=== PATIENT | female | born 1965 | race Caucasian/White ===

== ENCOUNTER 2020-06-11 21:23 | Emergency (ER) | payer MEDICAID ==
[~2020-06-11] VITALS: Ht 162.6 cm; Wt 79.0 kg
[2020-06-11] MEDS ORDERED: HYDROCODONE/ACETAMINOPHEN 5/325MG TABLET PO ONE (23:00)
[2020-06-11] MEDS ORDERED: METHOCARBAMOL 500MG TABLET PO ONE (23:00)
[2020-06-12] MEDS ORDERED: METH-653 MT (00:42)
[2020-06-12] MEDS ORDERED: HYDR-4346 MT (00:42)
[2020-06-12 01:06] VITALS: BP 157/80
[2020-06-12] MEDS ORDERED: HYDR-4001 MT (16:54)
== END 2020-06-12 01:08 | disposition home or self-care (01) ==
LOC: EDBD 21:23 → ER 21:23
DX: M54.5 Low back pain (principal); E11.9 Type 2 diabetes mellitus without complications; E78.00 Pure hypercholesterolemia, unspecified; Z90.49 Acquired absence of other specified parts of digestive tract; W01.0XXA Fall on same level from slipping, tripping and stumbling without subsequent striking against object, initial encounter; Y93.89 Activity, other specified; Y92.512 Supermarket, store or market as the place of occurrence of the external cause
CPT/HCPCS: 72100; 99283